=== PATIENT | female | born 1995 | race Caucasian/White ===

== ENCOUNTER 2017-04-18 20:36 | Inpatient (IN) | payer OTHER ==
[~2017-04-18] VITALS: Ht 170.2 cm; Wt 58.2 kg
[~2017-04-18 20:36] MED LIST: LEXA20TA PO; LORA0.5T PO
[2017-04-18 20:43] VITALS: BP 144/83; PULSE 75; RESP 20; TEMP 98.2; O2SAT 98
[2017-04-18] MEDS ORDERED: VENTAER INH (20:57)
[2017-04-18] MEDS ORDERED: FLUT50SP EACH NARE (20:57)
[2017-04-18] MEDS ORDERED: CEFD300C PO (20:57)
[2017-04-18] MEDS ORDERED: SODIUM CHLORIDE 0.9% FLUSH 10 ML FLUSH IVF PRN (21:00)
[2017-04-18] MEDS ORDERED: SODIUM CHLOR 0.9% 1000 ML INJ 1,000 ML IV ONE (21:00)
--- NOTE | 2017-04-18 21:04 | PD ---
HPI Chief Complaint: Psychiatric Symptoms Time Seen by Provider: 20:54 Travel History International Travel<30 days: No Contact w/Intl Traveler<30days: No Traveled to known affect area: No History of Present Illness HPI The patient is a 21 year old female who presents to the [facility] emergency department with a history of being brought in as a Rosario act prior to arrival. The patient reportedly at approximately 7 PM took 18 Ativan tablets and placed him in her mouth. She reports that she quickly spit them back out. The patient additionally reported that she was in a cut her wrists and held a knife to her wrist prior to arrival. The patient denies having suicidal ideations at this time. She does however have a history of depression and anxiety. She reports that she has had been Rosario acted in the past and attempted suicide in the past. The patient reports that she has been taking her antidepressant Lexapro on a regular basis. The lorazepam prescription that she took was her prescription. She reports that she had not been taking it regularly. The tablets were 0.5 mg tablets. On review of systems otherwise, she denies having any drowsiness, recent fevers, cough or congestion, neck pain , chest pain, shortness of breath, abdominal pain, vomiting, diarrhea, urinary symptoms, or neurologic symptoms. LMP: Currently on her cycle. [facility] Past Medical History Narrative Medical The patient's past medical history is significant for anxiety, depression, headaches. ADHD: No Weight (Kg): 3.000 Anxiety: Yes Depression: Yes Cancer: No Developmental Delay: No Diabetes: No Headaches: Yes (OCCASIONAL HEADACHES) Psychiatric: Yes Immunizations Current: Yes Migraines: No Seizures: No Thyroid Disease: No Ulcer: No Tetanus Vaccination: Unknown Influenza Vaccination: No ?: Unknown LMP: 04/18/17 Past Surgical History Narrative Surgical The patient's past surgical history is significant for a tonsillectomy. Appendectomy: No Cholecystectomy: No Tonsillectomy: Yes Social History Alcohol Use: No Tobacco Use: No Substance Use: No Allergies-Medications (Allergen,Severity, Reaction): Coded Allergies: No Known Allergies (Verified Adverse Reaction, Unknown, 04/18/17) Reported Meds & Prescriptions Reported Meds & Active Scripts Active Lorazepam 0.5 Mg Tab 0.5 Mg PO DAILY PRN Lexapro (Escitalopram Oxalate) 20 Mg Tab 20 Mg PO DAILY Reported Ventolin Hfa 18 GM Inh (Albuterol Sulfate) 90 Mcg/Act Aer 2 Puff INH BID PRN Fluticasone Nasal [place] 50 Mcg/Act Naspr 50 Mcg EACH NARE BID 50 mcg/spray Cefdinir 300 Mg Cap 300 Mg PO BID 10 Days Review of Systems Except as stated in HPI: all other systems reviewed are Neg General / Constitutional: No: Fever Eyes: No: Visual changes HENT: No: Headaches Cardiovascular: No: Chest Pain or Discomfort Respiratory: No: Shortness of Breath Gastrointestinal: No: Abdominal Pain Genitourinary: No: Dysuria Musculoskeletal: No: Pain Skin: No Rash Neurologic: No: Weakness Psychiatric: Positive: Anxiety, Depression, Suicidal Ideations, Mood Disorder, No: Disorder of Thought, Substance Abuse, Homicidal Ideation Endocrine: No: Polydipsia Hematologic/Lymphatic: No: Easy Bruising Physical Exam Narrative General: The patient is a well-developed well-nourished female in no acute distress. Head and Neck exam: Head is normocephalic atraumatic. Eyes: EOMI, pupils are equal round and reactive to light. Nose: Midline septum with pink mucous membranes Mouth: Dentition unremarkable. Moist mucus membranes. Posterior oropharynx is not erythematous. No tonsillar hypertrophy. Uvula midline. Airway patent. Neck: No palpable lymphadenopathy. No nuchal rigidity. No thyromegaly. Cardiovascular: Regular rate and rhythm without murmurs, gallops, or rubs. Lungs: Clear to auscultation bilaterally. No wheezes, rhonchi, or rales. Abdomen: Soft, without tenderness to palpation in all 4 quadrants of the abdomen. No guarding, rebound, or rigidity. Normal bowel sounds are audible. No tenderness on palpation of McBurney's point. Extremities: No clubbing, cyanosis, or edema. No calf tenderness on palpation. Back: No costovertebral angle tenderness to palpation. Neurologic Exam: Grossly nonfocal. Skin Exam: No rash noted. Intact skin that is warm and dry. Data Data Last Documented VS Vital Signs Date Time Temp Pulse Resp B/P (MAP) Pulse Ox O2 Delivery O2 Flow Rate FiO2 04/18/17 20:43 98.2 75 20 144/83 (103) 98 Orders Orders Electrocardiogram (04/18/17 20:55) Complete Blood Count With Diff (04/18/17 20:55) Comprehensive Metabolic Panel (04/18/17 20:55) Prothrombin Time / Inr (Pt) (04/18/17 20:55) Act Partial Throm Time (Ptt) (04/18/17 20:55) Osmolality,Serum (04/18/17 20:55) Osmolality, Urine (04/18/17 20:55) Urinalysis - C+S If Indicated (04/18/17 20:55) Iv Access Insert/Monitor (04/18/17 20:55) Ecg Monitoring (04/18/17 20:55) Oximetry (04/18/17 20:55) Sodium Chloride 0.9% Flush (Ns Flush) (04/18/17 21:00) Drug Screen, Random Urine (04/18/17 20:55) Alcohol (Ethanol) (04/18/17 20:55) Salicylates (Aspirin) (04/18/17 20:55) Tylenol (Acetaminophen) (04/18/17 20:55) Ed Urine Pregnancytest Poc (04/18/17 20:55) Sodium Chlor 0.9% 1000 Ml Inj (Ns 1000 M (04/18/17 21:00) Psych Screen (04/18/17 20:55) Labs Laboratory Tests Test 04/18/17 21:10 White Blood Count 9.3 TH/MM3 Red Blood Count 4.33 MIL/MM3 Hemoglobin 12.8 GM/DL Hematocrit 38.4 % Mean Corpuscular Volume 88.6 FL Mean Corpuscular Hemoglobin 29.5 PG Mean Corpuscular Hemoglobin Concent 33.3 % Red Cell Distribution Width 13.5 % Platelet Count 253 TH/MM3 Mean Platelet Volume 8.4 FL Neutrophils (%) (Auto) 64.3 % Lymphocytes (%) (Auto) 20.6 % Monocytes (%) (Auto) 12.9 % Eosinophils (%) (Auto) 1.7 % Basophils (%) (Auto) 0.5 % Neutrophils # (Auto) 6.0 TH/MM3 Lymphocytes # (Auto) 1.9 TH/MM3 Monocytes # (Auto) 1.2 TH/MM3 Eosinophils # (Auto) 0.2 TH/MM3 Basophils # (Auto) 0.0 TH/MM3 CBC Comment DIFF FINAL Differential Comment Prothrombin Time 9.8 SEC Prothromb Time International Ratio 1.0 RATIO Activated Partial Thromboplast Time 22.3 SEC Blood Urea Nitrogen 6 MG/DL Creatinine 0.72 MG/DL Random Glucose 103 MG/DL Total Protein 7.0 GM/DL Albumin 3.4 GM/DL Calcium Level 8.4 MG/DL Alkaline Phosphatase 77 U/L Aspartate Amino Transf (AST/SGOT) 16 U/L Alanine Aminotransferase (ALT/SGPT) 15 U/L Total Bilirubin 0.1 MG/DL Sodium Level 139 MEQ/L Potassium Level 3.7 MEQ/L Chloride Level 104 MEQ/L Carbon Dioxide Level 26.5 MEQ/L Anion Gap 9 MEQ/L Estimat Glomerular Filtration Rate 103 ML/MIN Serum Osmolality 292 MOSM/KG Salicylates Level LESS THAN 1.7 MG/DL Acetaminophen Level LESS THAN 2.0 MCG/ML Ethyl Alcohol Level LESS THAN 3 MG/DL MDM Medical Decision Making Medical Screen Exam Complete: Yes Emergency Medical Condition: Yes Medical Record Reviewed: Yes Differential Diagnosis Suicide attempt, versus suicidal gesture, versus substance induced mood disorder Narrative Course During the course of the patients emergency department visit, the patients history, examination, and differential diagnosis were reviewed with the patient. The patient was placed on a traffic monitor specialist with oximetry and frequent blood pressure monitoring. The patient had IV access obtained and blood work sent for analysis. The patient's Rosario act was reviewed. The patient had an ECG done on arrival that shows a sinus rhythm with a short NV interval, heart rate of 77, QRS duration 89 ms, QTC [address] segment changes. The patient was initially provided a normal saline 1 L IV fluid bolus. The patients laboratory studies were reviewed and remarkable for a white count of 9.3, hemoglobin 12.8, platelets 253 with monocytes 12.9, CMP is remarkable for a BUN of 6, calcium 8.4, total bilirubin 0.1, serum osmolality is 292, PT 9.8, PTT 22.3, salicylate less than 1.7, acetaminophen less than 2, alcohol less than 3. On reexamination, the patient continues to be awake and alert, easily awakened with normal mentation. The patient has been medically cleared for evaluation by the psychiatric screener and psychiatrist under a Rosario act. Diagnosis Primary Impression: Suicide attempt Bethanie Mckenzie MD Apr 18, 2017 21:04
[2017-04-18 21:28] LABS: BASOPHIL % 0.5 % (0.0-2.0); EOSINOPHIL # 0.2 TH/MM3 (0-0.4); EOSINOPHIL % 1.7 % (0.0-4.0); HEMATOCRIT 38.4 % (35.0-46.0); HEMO FLAGS DIFF FINAL; LYMPH % 20.6 % (9.0-44.0); LYMPHOCYTE # 1.9 TH/MM3 (1.0-4.8); MEAN CELL VOLUME 88.6 FL (80.0-100.0); MEAN CORPUSCULAR HEMOGLOBIN 29.5 PG (27.0-34.0); MEAN CORPUSCULAR HGB CONC 33.3 % (32.0-36.0); MONO % 12.9 % (0.0-8.0); NEUT % 64.3 % (16.0-70.0); PLATELET COUNT 253 TH/MM3 (150-450); RED BLOOD COUNT 4.33 MIL/MM3 (4.00-5.30); RED CELL DISTRIBUTION WIDTH 13.5 % (11.6-17.2); WHITE BLOOD COUNT 9.3 TH/MM3 (4.0-11.0)
[2017-04-18 21:35] LABS: APTT (PATIENT) 22.3 SEC (24.3-30.1); PROTHROMBIN TIME - PATIENT 9.8 SEC (9.8-11.6)
[2017-04-18 21:43] LABS: ALKALINE PHOSPHATASE 77 U/L (45-117); TOTAL BILIRUBIN ADULT 0.1 MG/DL (0.2-1.0)
[2017-04-18 21:52] LABS: ALT (GPT) 15 U/L (9-42); ANION GAP 9 MEQ/L (5-15); AST (GOT) 16 U/L (16-38); BICARBONATE 26.5 MEQ/L (21.0-32.0); BLOOD UREA NITROGEN 6 MG/DL (7-18); CHLORIDE 104 MEQ/L (98-107); GLOMERULAR FILTRATION RATE 103 ML/MIN (>89); POTASSIUM 3.7 MEQ/L (3.5-5.1); SODIUM (NA) 139 MEQ/L (136-145)
[2017-04-18 21:53] LABS: ACETAMINOPHEN LESS THAN 2.0 MCG/ML (10.0-30.0); ALCOHOL LESS THAN 3 MG/DL (0-5)
[2017-04-19 01:18] LABS: BLOOD, URINE SMALL (NEG); COMMENT (UR) CULT NOT INDICATED; CULTURE IF INDICATED CULT NOT INDICATED; GLUCOSE,URINE NEG (NEG); KETONE, URINE NEG (NEG); MUCUS URINE FEW /lpf (OCC); NITRITE,URINE NEG (NEG); PH, URINE 6.5 (5.0-8.5); SQUAMOUS EPITHELIAL CELL URINE 1 /hpf (0-5); URINE COLOR LIGHT-YELLOW (YELLW/STRAW)
[2017-04-19] MEDS ORDERED: LORATADINE 10 MG TAB PO ONE (02:30)
[2017-04-19 05:47] VITALS: BP_SYST 126; BP_SYST 59; BP_DIAS 59; BP_DIAS 68; PULSE 17; PULSE 68; RESP 17; O2SAT 100
--- NOTE | 2017-04-19 10:25 | EKG ---
Date Performed: 04/18/2017 Time Performed: 21:31:51 PTAGE: 21 years EKG: Sinus rhythm WITH SHORT SC INTERVAL BORDERLINE ECG PREVIOUS TRACING : 03/06/2010 13.25 Compared to prior tracing no significant change DOCTOR: Cezar Thomas Interpretating Date/Time 04/19/2017 10:24:25
[2017-04-19 10:29] VITALS: BP 142/76; PULSE 98; RESP 18; TEMP 98.7; O2SAT 97
[2017-04-19] MEDS ORDERED: ACETAMINOPHEN 325 MG TAB PO PRN (13:30)
[2017-04-19] MEDS ORDERED: ALUMINUM/MAGNESIUM/SIMETH 30 ML CUP PO PRN (13:30)
[2017-04-19] MEDS ORDERED: MAGNESIUM HYDROXIDE SUSP 30 ML CUP PO PRN (13:30)
--- NOTE | 2017-04-19 13:48 | HHI.HP ---
Provisional Diagnosis Admission Date [place] I. Adjustment disorder with mixed disturbance of emotion and conduct Certification of Person's Competence To Provide Express and Informed Consent I have personally examined Paola Torrez , a person being served at [facility] on, Apr 19, 2017 13:39. Express and informed consent means consent voluntarily given in writing, by a competent person, after sufficient explanation and disclosure of the subject matter involved to enable the person to make a knowing and willful decision without any element of force, fraud, deceit, duress, or other form of constraint or coercion. This person is 18 years of age or older, is not now known to be incompetent to consent to treatment with a guardian advocate, and does not have a health care surrogate or proxy currently making medical treatment decisions. I have found this person to be one of the following: [x] Competent to provide express and informed consent, as defined above, for voluntary admission to this facility and is competent to provide express and informed consent for treatment. He/she has the consistent capacity to make well reasoned, willful, and knowing decisions concerning his or her medical or mental health treatment. The person fully and consistently understands the purpose of the admission for examination/placement and is fully capable of personally exercising all rights [place] Incompetent to provide express and informed consent to voluntary admission, and this is incompetent to provide express and informed consent to treatment. The person must be transferred to involuntary status and a petition for a guardian advocate filed with the Circuit Court. [] Refusing to provide express and informed consent to voluntary admission but is competent to provide express and informed consent for treatment. The person must be discharged or transferred to involuntary status. Form shall be completed within 24 hours of a person's arrival at the receiving facility and filed in the clinical record of each person: 1. Admitted on a voluntary basis 2. Permitted to provide express and informed consent to his/her own treatment 3. Allowed to transfer from involuntary to voluntary status 4. Prior to permitting a person to consent to his or her own treatment after having been previously found incompetent to consent to treatment. History of Present Illness Capacity: Has Capacity HPI 21-year-old female presents under a Rosario act after a suicide attempt by overdose and threatening to cut her wrists. Apparently the patient got into a significant verbal altercation with her parents. She would not disclose the details of this altercation with this physician. She continues to be very unhappy with her parents and she states she made this suicide attempt so that they would feel the pain that she was feeling. She also held a knife to her wrists in front of them, threatening to cut her own wrists. Unfortunately, this is not the patient's first overdose/suicide attempt. She has been treated in the past at [facility] and approximately 7 years ago she overdosed in a suicide attempt. She continues to have a kathy relationship with her parents and since being admitted to this emergency department, she has refused to have any conversation with her parents or allow us to speak to her parents. The patient denies a history of alcohol or substance abuse. She does admit to multiple symptoms of depression, including depressed mood, anhedonia, suicidal ideation, diminished energy, decreased self-esteem, feelings of hopelessness and helplessness, irritability, social withdrawal, etc. She apparently ingested approximately 15 0.5 mg Ativan tablets. She continues to be tearful. Review of Systems Psychiatric: COMPLAINS OF: Anxiety, Depression, Suicidal Ideation Except as stated in HPI: all other systems reviewed are Neg Past Psych History Psychological trauma history Unknown for psychological trauma but patient has overdosed in the past. Violence risk - others (6 mos) Minimal to moderate. Violence risk - self (6 mos) High Substance Abuse History Drugs/Alcohol past 12 months Denied. Patient is positive for cannabinoids. Past Family Social History Coded Allergies: No Known Allergies (Verified Adverse Reaction, Unknown, 04/18/17) Active Scripts Lorazepam (Lorazepam) 0.5 Mg Tab, 0.5 MG PO DAILY Y for ANXIETY, #20 TAB 2 Refills Prov:Nik Klein MD 02/20/17 Escitalopram (Lexapro) 20 Mg Tab, 20 MG PO DAILY, #90 TAB 2 Refills Prov:Nik Klein MD 02/20/17 Reported Medications Albuterol 18 GM Inh (Ventolin Hfa 18 GM Inh) 90 Mcg/Act Aer, 2 PUFF INH BID Y for SHORTNESS OF BREATH, #1 INHALER 0 Refills 04/18/17 Fluticasone Nasal [place] (Fluticasone Nasal [place]) 50 Mcg/Act Naspr, 50 MCG EACH NARE BID for Allergy Management, #1 BOTTLE 0 Refills 50 mcg/spray 04/18/17 Cefdinir (Cefdinir) 300 Mg Cap, 300 MG PO BID for Infection for 10 Days, #20 CAP 0 Refills 04/18/17 Current Medications Medications (Trade) Dose Ordered Sig/Peyton Route Start Time Stop Time Status Last Admin (NS Flush) 2 ml UNSCH PRN IVF 04/18/17 21:00 Family Psych History Positive for mood disorders. Social History Currently is a student. Remains on her father's health insurance. Denies a history of alcoholism or drug abuse. Not currently employed. Does have at least some family support from her parents. Patient's Strengths (min. 2) Verbal and has access to healthcare. Physical Exam GENERAL: SKIN: Warm and dry. HEAD: Normocephalic. EYES: No scleral icterus. No injection or drainage. NECK: Supple, trachea midline. No JVD or lymphadenopathy. CARDIOVASCULAR: Regular rate and rhythm without murmurs, gallops, or rubs. RESPIRATORY: Breath sounds equal bilaterally. No accessory muscle use. GASTROINTESTINAL: Abdomen soft, non-tender, nondistended. MUSCULOSKELETAL: No cyanosis, or edema. BACK: Nontender without obvious deformity. No CVA tenderness. Vital Signs Vital Signs Date Time Temp Pulse Resp B/P (MAP) Pulse Ox O2 Delivery O2 Flow Rate FiO2 04/19/17 10:29 98.7 98 18 142/76 (98) 97 04/19/17 05:47 Room Air Lab Results Test 04/18/17 21:10 04/19/17 00:35 White Blood Count 9.3 TH/MM3 Red Blood Count 4.33 MIL/MM3 Hemoglobin 12.8 GM/DL Hematocrit 38.4 % Mean Corpuscular Volume 88.6 FL Mean Corpuscular Hemoglobin 29.5 PG Mean Corpuscular Hemoglobin Concent 33.3 % Red Cell Distribution Width 13.5 % Platelet Count 253 TH/MM3 Mean Platelet Volume 8.4 FL Neutrophils (%) (Auto) 64.3 % Lymphocytes (%) (Auto) 20.6 % Monocytes (%) (Auto) 12.9 % Eosinophils (%) (Auto) 1.7 % Basophils (%) (Auto) 0.5 % Neutrophils # (Auto) 6.0 TH/MM3 Lymphocytes # (Auto) 1.9 TH/MM3 Monocytes # (Auto) 1.2 TH/MM3 Eosinophils # (Auto) 0.2 TH/MM3 Basophils # (Auto) 0.0 TH/MM3 CBC Comment DIFF FINAL Differential Comment Prothrombin Time 9.8 SEC Prothromb Time International Ratio 1.0 RATIO Activated Partial Thromboplast Time 22.3 SEC Blood Urea Nitrogen 6 MG/DL Creatinine 0.72 MG/DL Random Glucose 103 MG/DL Total Protein 7.0 GM/DL Albumin 3.4 GM/DL Calcium Level 8.4 MG/DL Alkaline Phosphatase 77 U/L Aspartate Amino Transf (AST/SGOT) 16 U/L Alanine Aminotransferase (ALT/SGPT) 15 U/L Total Bilirubin 0.1 MG/DL Sodium Level 139 MEQ/L Potassium Level 3.7 MEQ/L Chloride Level 104 MEQ/L Carbon Dioxide Level 26.5 MEQ/L Anion Gap 9 MEQ/L Estimat Glomerular Filtration Rate 103 ML/MIN Serum Osmolality 292 MOSM/KG Salicylates Level LESS THAN 1.7 MG/DL Acetaminophen Level LESS THAN 2.0 MCG/ML Ethyl Alcohol Level LESS THAN 3 MG/DL Urine Color LIGHT-YELLOW Urine Turbidity CLEAR Urine pH 6.5 Urine Specific [place] 1.014 Urine Protein NEG mg/dL Urine Glucose (UA) NEG mg/dL Urine Ketones NEG mg/dL Urine Occult Blood SMALL Urine Nitrite NEG Urine Bilirubin NEG Urine Urobilinogen LESS THAN 2.0 MG/DL Urine Leukocyte Esterase NEG Urine RBC 1 /hpf Urine WBC LESS THAN 1 /hpf Urine Squamous Epithelial Cells 1 /hpf Urine Mucus FEW /lpf Microscopic Urinalysis Comment CULT NOT INDICATED Urine Osmolality 641 MOSM/KG Urine Opiates Screen NEG Urine Barbiturates Screen NEG Urine Amphetamines Screen NEG Urine Benzodiazepines Screen NEG Urine Cocaine Screen NEG Urine Cannabinoids Screen POS Mental Status Examination Appearance: Appropriate Consciousness: Alert Orientation: x4 Motor Activity: Normal gait Speech: Unremarkable Language: Adequate Fund of Knowledge: Adequate Attention and Concentration: Adequate Memory: Unremarkable Mood: Sad, Anxious Affect: Sad, Anxious Thought Process & Associations: Intact Thought Content: Appropriate Hallucination Type: None Delusion Type: None Suicidal Ideation: Yes Suicidal Plan: Yes Suicidal Intention: Yes Homicidal Ideation: No Homicidal Plan: No Homicidal Intention: No Insight: Fair Judgment: Impulsive Assessment & Plan Problem List: (1) Adjustment disorder with mixed disturbance of emotions and conduct ICD Codes: F43.25 - Adjustment disorder with mixed disturbance of emotions and conduct Assessment & Plan Estimated LOS: days. 21-year-old female with recent ingestion of multiple Ativan tablets. Patient states she spent the tablets out after putting them in her mouth. However, she also held a knife to her wrist in front of her parents. She continues to report multiple symptoms of depression and suicidal thinking. Because of her age and current circumstances, she is felt to be at high risk for self-harm. Additionally, because she will not talk to her parents or allow us to talk to her parents, and this physician has little understanding of why she overdosed, the patient is felt to be at high risk for self-harm. This physician has ordered a CBC and comprehensive metabolic panel to determine if any infectious process or metabolic process is causing or contributing to her depression. Additionally, this physician ordered thyroid stimulating hormone level, vitamin B-12 level and vitamin D level, to determine if any deficiencies in these areas is causing or contributing to her depression. This physician is also ordering hemoglobin A1 C and a lipid panel as psychotropic medicines may aggravate any underlying metabolic issues. Finally, this physician ordered an EKG to determine the patient's cardiac conduction status prior to significantly altering her psychotropic medicines, which might adversely affect her cardiac conduction system. This physician spoke with the patient's nurse, Alie, regarding the patient's recent behavior. Case management will also be involved to assist with information gathering and disposition planning. Rohan Regan MD Apr 19, 2017 13:48
[2017-04-19 17:21] VITALS: BP 149/67; PULSE 89; RESP 16; TEMP 98.8; O2SAT 96
[2017-04-20 06:35] VITALS: BP 133/58; PULSE 77; RESP 18; TEMP 97.3; O2SAT 100
[2017-04-20 11:53] LABS: AUTOMATED NEUTROPHIL # 3.7 TH/MM3 (1.8-7.7); BASOPHIL % 0.4 % (0.0-2.0); EOSINOPHIL # 0.1 TH/MM3 (0-0.4); EOSINOPHIL % 2.2 % (0.0-4.0); HEMATOCRIT 42.3 % (35.0-46.0); HEMO FLAGS DIFF FINAL; LYMPH % 26.7 % (9.0-44.0); LYMPHOCYTE # 1.7 TH/MM3 (1.0-4.8); MEAN CELL VOLUME 88.5 FL (80.0-100.0); MEAN CORPUSCULAR HGB CONC 33.9 % (32.0-36.0); MONO % 11.6 % (0.0-8.0); NEUT % 59.1 % (16.0-70.0); PLATELET COUNT 288 TH/MM3 (150-450); RED BLOOD COUNT 4.78 MIL/MM3 (4.00-5.30); RED CELL DISTRIBUTION WIDTH 13.4 % (11.6-17.2); WHITE BLOOD COUNT 6.2 TH/MM3 (4.0-11.0)
[2017-04-20 12:50] LABS: ALT (GPT) 19 U/L (9-42); ANION GAP 7 MEQ/L (5-15); AST (GOT) 14 U/L (16-38); BICARBONATE 28.6 MEQ/L (21.0-32.0); BLOOD UREA NITROGEN 6 MG/DL (7-18); CHLORIDE 102 MEQ/L (98-107); GLOMERULAR FILTRATION RATE 99 ML/MIN (>89); POTASSIUM 4.2 MEQ/L (3.5-5.1); SODIUM (NA) 138 MEQ/L (136-145)
[2017-04-20 13:24] LABS: ALKALINE PHOSPHATASE 77 U/L (45-117); HDL CHOLESTEROL 38.1 MG/DL (40.0-60.0); LDL CHOLESTEROL 95 MG/DL (0-99); TOTAL BILIRUBIN ADULT 0.3 MG/DL (0.2-1.0)
[2017-04-20 14:48] LABS: HEMOGLOBIN A1a 1.1 %; HEMOGLOBIN A1b 1.6 %; HEMOGLOBIN Ao 85.8 %; HEMOGLOBIN LA1C 1.9 %; HEMOGLOBIN P3 3.6 %
--- NOTE | 2017-04-20 15:21 | EKG ---
Date Performed: 04/20/2017 Time Performed: 12:50:44 PTAGE: 21 years EKG: Sinus rhythm NORMAL ECG No significant change from prior electrocardiogram. PREVIOUS TRACING : 04/18/2017 21.31 DOCTOR: Vince Powell Interpretating Date/Time 04/20/2017 15:19:32
--- NOTE | 2017-04-20 15:54 | HHI.DS ---
Psychiatry Discharge Summary Inpatient Psychiatric care?: Yes Advance Directive: No Reason Not Provided: none Mental Health AdvanceDirective: No Health Care Proxy: No Admission Admission Date Apr 19, 2017 at 13:38 Admission Diagnosis: (1) Adjustment disorder with mixed disturbance of emotions and conduct ICD Code: F43.25 - Adjustment disorder with mixed disturbance of emotions and conduct Brief History 21-year-old female presents under a Rosario act after a suicide attempt by overdose and threatening to cut her wrists. Apparently the patient got into a significant verbal altercation with her parents. She would not disclose the details of this altercation with this physician. She continues to be very unhappy with her parents and she states she made this suicide attempt so that they would feel the pain that she was feeling. She also held a knife to her wrists in front of them, threatening to cut her own wrists. Unfortunately, this is not the patient's first overdose/suicide attempt. She has been treated in the past at [facility] and approximately 7 years ago she overdosed in a suicide attempt. She continues to have a kathy relationship with her parents and since being admitted to this emergency department, she has refused to have any conversation with her parents or allow us to speak to her parents. The patient denies a history of alcohol or substance abuse. She does admit to multiple symptoms of depression, including depressed mood, anhedonia, suicidal ideation, diminished energy, decreased self-esteem, feelings of hopelessness and helplessness, irritability, social withdrawal, etc. She apparently ingested approximately 15 0.5 mg Ativan tablets. She continues to be tearful. Tobacco Use In Past 30 Days: No Tobacco Past 30 Days Alcohol Use: Never Hospital Course Patient admitted by Dr. Rohan Regan's initial psychiatric evaluation reviewed and agreed with. The initial psychiatric template also filled out by me. Patient seen by me today with floor staff. Patient stating that she get into argument with her father over finances. It appears the patient is going to [email or web address] in [place] that is being supported by her dad also supports her car expenses and food. At appears patient has an [place]ro[place] boyfriend was she met in a restaurant with her both worked in June of this year. The been quite close she is spent much time of them and parents feel that she is expending much finances and time with her to the detriment of her education. Patient denies this. Patient did make a gesture of putting her prescription Xanax and a mouthful swallow then spit them out, may gestures with knife towards her wrist but says she would never cut herself again. She did acknowledge prior cutting as a teenager. She did acknowledge prior mental health contact her HPS. That she has continues see Dr. Klein. And occasionally sees a counselor. She does acknowledge routine marijuana use and has experimented with cocaine and mollies. She does denies suicidality homicidality voices or visions. I also talked the patient's mother Nirmala at [phone], and talked with patient's father Aakash at [phone]. They acknowledge this markedly chaotic relationship is developing between themselves and their adopted older daughter. They both feel the patient is not suicidal and they feel safe with her being discharged. The father is willing to come up with his daughter up about 5 PM today to stay with them tonight I did strongly recommend they get into the counseling as soon as possible to talk about their relationship. I also feel the patient would probably benefit from an adult psychiatrist that could be referred by the counselor. Patient is on Lexapro the present time she may continue that. Patient is unable contract with me to do no harm. Thus patient be discharged today to her father Results Blood Pressure 133 / 58 Vital Signs Date Time Temp Pulse Resp B/P (MAP) Pulse Ox O2 Delivery O2 Flow Rate FiO2 04/20/17 06:35 97.3 77 18 133/58 (83) 100 04/19/17 05:47 Room Air Laboratory Tests Test 04/18/17 21:10 04/19/17 00:35 04/20/17 10:43 Monocytes (%) (Auto) 12.9 % (0.0-8.0) 11.6 % (0.0-8.0) Monocytes # (Auto) 1.2 TH/MM3 (0-0.9) Activated Partial Thromboplast Time 22.3 SEC (24.3-30.1) Blood Urea Nitrogen 6 MG/DL (7-18) 6 MG/DL (7-18) Calcium Level 8.4 MG/DL (8.5-10.1) Total Bilirubin 0.1 MG/DL (0.2-1.0) Salicylates Level LESS THAN 1.7 MG/DL Acetaminophen Level LESS THAN 2.0 MCG/ML Urine Occult Blood SMALL (NEG) Urine Mucus FEW /lpf (OCC) Urine Cannabinoids Screen POS (NEG) Aspartate Amino Transf (AST/SGOT) 14 U/L (16-38) HDL Cholesterol 38.1 MG/DL (40.0-60.0) 25-Hydroxy Vitamin D Total 29.3 ng/ML (30-100) Laboratory Results Test 04/20/17 10:43 Cholesterol Level 147 MG/DL (120-200) HDL Cholesterol 38.1 MG/DL (40.0-60.0) Hemoglobin A1c 5.2 % (4.3-6.0) LDL Cholesterol 95 MG/DL (0-99) Triglycerides Level 72 MG/DL (42-150) Summary of Procedures None done Pending results at discharge: No Medications # of Antipsychotic meds at D/C: 0 Approp Antipsych med options 1 - Minimum of three failed multiple trials of monotherapy. 2 - Documented plan to taper to monotherapy due to previous use of multiple meds OR cross-taper in progress at D/C. 3 - Documentation of augmentation of Clozapine. 4 - Justification other than those listed in allowable values 1-3, document here : Discharge Discharge Date: Apr 20, 2017 Discharge Diagnosis: (1) Adjustment disorder with mixed disturbance of emotions and conduct Diagnosis: Principal ICD Code: F43.25 - Adjustment disorder with mixed disturbance of emotions and conduct Pt Condition on Discharge: Stable Discharge Disposition: Discharge Home Discharge Instructions Diet Instructions: As Tolerated, No Restrictions Activities you can perform: Regular-No Restrictions Scheduled Appointment: follow-up private therapist follow-up psychiatric services and community Discharge Time > 30 minutes Mental Status Examination Appearance: Appropriate Consciousness: Alert Orientation: x4 Motor Activity: Normal gait Speech: Unremarkable Language: Adequate Fund of Knowledge: Adequate Attention and Concentration: Adequate Memory: Unremarkable Mood: Sad, Anxious Affect: Sad, Anxious Thought Process & Associations: Intact Thought Content: Appropriate Hallucination Type: None Delusion Type: None Suicidal Ideation: Yes Suicidal Plan: Yes Suicidal Intention: Yes Homicidal Ideation: No Homicidal Plan: No Homicidal Intention: No Insight: Fair Judgment: Impulsive Discharge/Advance Care Plan Health Problems: (1) Adjustment disorder with mixed disturbance of emotions and conduct Goals to promote your health * To prevent worsening of your condition and complications * To maintain your health at the optimal level Directions to meet your goals Take your medications as prescribed Follow your dietary instruction Follow activity as directed Keep your appointments as scheduled Take your immunizations and boosters as scheduled If your symptoms worsen call your PCP, if no PCP go to Urgent Care Center or Emergency Room For 05/12 questions related to your inpatient stay or results of tests pending at discharge, please contact Dr. Aakash Borja at Smoking is Dangerous to Your Health. Avoid second hand smoking Aakash Borja MD Apr 20, 2017 15:54
[2017-04-20] MEDS ORDERED: ACETAMINOPHEN 325 MG TAB PO PRN (16:00)
== END 2017-04-20 17:10 | disposition home or self-care (01) | DRG 882 ==
LOC: NEPE 20:36 → NEDA 04-19 13:38 → H260 04-19 16:56
PROVIDERS: ADMIT Psychiatry & Neurology Psychiatry; ATTEND Psychiatry & Neurology Psychiatry
DX: F43.25 Adjustment disorder with mixed disturbance of emotions and conduct (principal); F12.90 Cannabis use, unspecified, uncomplicated; Z91.5 Personal history of self-harm
CPT/HCPCS: 80053; 80061; 80307; 81001; 82306; 82607; 83036; 83930; 83935; 84443; 84703; 85025; 85610; 85730; 93005; 99285; J7030